=== PATIENT | female | born 1970 | race Caucasian/White ===

== ENCOUNTER → 2017-02-06 | Outpatient (CLI) | payer OTHER | LOC: MHCPAIN 15:16 | DX: G89.29 Other chronic pain (principal); M50.123 Cervical disc disorder at C6-C7 level with radiculopathy; E66.9 Obesity, unspecified | CPT/HCPCS: G0463 ==

== ENCOUNTER → 2017-03-03 | Outpatient (CLI) | payer OTHER | LOC: MHCPAIN 10:12 | DX: G89.29 Other chronic pain (principal); M50.123 Cervical disc disorder at C6-C7 level with radiculopathy | CPT/HCPCS: G0463 ==

== ENCOUNTER → 2017-04-10 | Outpatient (CLI) | payer OTHER | LOC: MHCPAIN 08:53 | DX: G89.29 Other chronic pain (principal); M50.123 Cervical disc disorder at C6-C7 level with radiculopathy | CPT/HCPCS: G0463 ==

== ENCOUNTER → 2017-04-13 | Outpatient (CLI) | payer OTHER | LOC: MHCPAIN 13:46 | DX: M50.123 Cervical disc disorder at C6-C7 level with radiculopathy (principal); M99.51 Intervertebral disc stenosis of neural canal of cervical region; M25.78 Osteophyte, vertebrae | CPT/HCPCS: J1100; Q9967 ==

== ENCOUNTER → 2017-05-15 | Outpatient (CLI) | payer OTHER | LOC: MHCPAIN 13:50 | DX: G89.29 Other chronic pain (principal); M50.122 Cervical disc disorder at C5-C6 level with radiculopathy | CPT/HCPCS: G0463 ==

== ENCOUNTER → 2018-12-13 | Outpatient (CLI) | payer BC, OTHER | LOC: COL.RAD 09:31 | DX: M99.71 Connective tissue and disc stenosis of intervertebral foramina of cervical region (principal); Z98.1 Arthrodesis status ==